=== PATIENT | male | born 1955 | race Caucasian/White ===

== ENCOUNTER 2025-01-15 05:22 | Day surgery (SDC) | payer MEDICARE, OTHER ==
[2025-01-08 11:22] LABS: BASOPHILS # (AUTO) 0.1 X10'3 (0-0.2); BASOPHILS % (AUTO) 0.8 % (0-1); EOSINOPHILS # (AUTO) 0.2 X10'3 (0-0.9); EOSINOPHILS % (AUTO) 3.2 % (0-6); LYMPHOCYTES # (AUTO) 1.5 X10'3 (1.1-4.8); LYMPHOCYTES % (AUTO) 20.1 % (21-51); MEAN CORPUSCULAR HEMOGLOBIN 31.7 PG (27.0-31.0); MEAN CORPUSCULAR HGB CONC 33.7 g/dL (33.0-36.5); MONOCYTES # (AUTO) 0.9 X10'3 (0-0.9); MONOCYTES % (AUTO) 12.2 % (2-12); NEUTROPHILS # (AUTO) 4.7 X10'3 (1.8-7.7); NEUTROPHILS % (AUTO) 63.7 % (42-75); PRE OP HEMATOCRIT 51.2 % (42.0-52.0); PRE OP HEMOGLOBIN 17.3 g/dL (14.0-17.9); PRE OP PLATELET COUNT 192 X10'3 (140-440); PRE OP WHITE BLOOD COUNT 7.3 10'3 (4.8-10.8); RED BLOOD COUNT 5.45 X10'6 (4.70-6.10)
[2025-01-08 11:39] LABS: ALBUMIN 3.7 G/DL (3.4-5.0); ALBUMIN/GLOBULIN RATIO 1.1 (1.1-1.5); ALKALINE PHOSPHATASE 76 IU/L (46-116); BLOOD UREA NITROGEN 18 MG/DL (7-18); BUN/CREATININE RATIO 16.8 (10.0-20.0); CALCIUM 9.1 MG/DL (8.5-10.1); CHLORIDE 103 MMOL/L (99-107); CREATININE 1.07 MG/DL (0.60-1.10); PRE OP ALT 29 U/L (30-65); PRE OP ANION GAP 6 (8-16); PRE OP AST 17 U/L (10-37); PRE OP GLUCOSE 90 MG/DL (70-104); PRE OP POTASSIUM 4.1 MMOL/L (3.4-5.1); PRE OP SODIUM 138 MMOL/L (135-145); TOTAL CARBON DIOXIDE 29.3 MMOL/L (24-32); TOTAL PROTEIN 7.1 G/DL (6.4-8.2); eGFR 68 ML/MIN
[~2025-01-15] VITALS: Ht 175.3 cm; Wt 90.3 kg
[2025-01-15] VITALS (9 sets, daily range): BP systolic 133–158; BP diastolic 81–105; PULSE 65–104; RESP 14–18; TEMP 97.8; O2SAT 65–98
[~2025-01-15 05:22] MED LIST: AMLO5TAB PO; FEBU40TA PO; FEXO-25 PO; LOSA100T58 PO; MULT-1085 PO; VIT D3
[2025-01-15] MEDS: ceFAZolin 2gm in dextrose, iso 50 ML IV ONE (05:51)
[2025-01-15] MEDS: ringers solution, lacted 1,000 ML IV SCH (06:07)
[2025-01-15] MEDS: famotidine 20mg tablet PO ONE (06:07)
[2025-01-15] MEDS ORDERED: LIDOcaine 1% 30ml preserv. free vial ONE (06:40)
[2025-01-15] MEDS ORDERED: BUPIVAcaine 2.5mg/ml inj 50ml vial (contains preservative) ONE (06:40)
[2025-01-15] MEDS ORDERED: meperidine/PF 25mg/ml syringe IV PRN ×3 (07:30)
[2025-01-15] MEDS ORDERED: ringers solution, lacted 1,000 ML IV SCH (07:30)
[2025-01-15] MEDS ORDERED: ondansetron/PF 4mg/2ml inj IV PRN (07:30)
[2025-01-15] MEDS ORDERED: morphine 2 MG/ML inj. syringe IV PRN (07:30)
[2025-01-15] MEDS ORDERED: proCHLORperazine 10 MG/2 ml inj IV PRN (07:30)
[2025-01-15] MEDS ORDERED: hydrALAZINE 20mg/ml inj. IV PRN (07:30)
[2025-01-15] MEDS ORDERED: morphine 4 MG/ML inj SYRINge IV PRN (07:30)
[2025-01-15] MEDS ORDERED: sevoflurane 250ml liquid IH ONE (07:32)
[2025-01-15] MEDS ORDERED: midazolam 1 mg/ML 2ml injection ONE (07:35)
[2025-01-15] MEDS ORDERED: fentaNYL /PF 50mcg/ml 5ml ampule ONE (07:35)
[2025-01-15] MEDS ORDERED: propofol inj 20 ML IV ONE (08:04)
[2025-01-15] MEDS ORDERED: 0.9 % SODIUM CHLORIDE 10 ML VIAL ONE (08:04)
[2025-01-15] MEDS ORDERED: ePHEDrine 50MG/ML INJ. ONE (08:05)
[2025-01-15] MEDS ORDERED: LIDOcaine 2% (20mg/ml) 5ml vial ONE (08:05)
[2025-01-15] MEDS ORDERED: rocuronium 10mg/ml inj IV ONE (08:05)
[2025-01-15] MEDS ORDERED: ondansetron/PF 4mg/2ml inj ONE (08:06)
[2025-01-15] MEDS ORDERED: dexamethasone sod phosphate 4mg/ml inj. ONE (08:06)
[2025-01-15] MEDS: BUPIVAcaine/PF 2.5 mg/ml (0.25%) 30ml vial IJ ONE (08:13)
[2025-01-15] MEDS ORDERED: neostigmine methylsulfate 1 MG/ML 10ml vial ONE (08:50)
[2025-01-15] MEDS ORDERED: glycopyrrolate 0.2mg/ml inj ONE (08:50)
[2025-01-15] MEDS ORDERED: morphine 4 MG/ML inj SYRINge ONE (09:08)
[2025-01-15] MEDS ORDERED: HYDROcodone/acetaminophen 5mg/325mg tablet PO PRN (09:45)
[2025-01-15] MEDS: labetalol 20mg/4ml (5mg/ml) syringe IV PRN (10:05)
[2025-01-15] MEDS: acetaminophen 1,000mg/100ml IV 100 ML IV PRN (10:14)
== END 2025-01-15 10:50 | disposition home or self-care (01) ==
LOC: PAS 05:22
PROVIDERS: ATTEND Surgery
DX: K42.9 Umbilical hernia without obstruction or gangrene (principal); K40.90 Unilateral inguinal hernia, without obstruction or gangrene, not specified as recurrent; I10 Essential (primary) hypertension; E78.5 Hyperlipidemia, unspecified; Z98.890 Other specified postprocedural states; Z79.899 Other long term (current) drug therapy
CPT/HCPCS: 36415; 49591; 49650; 80053; 82948; 85025; 93005; A4215; A4615; A4618; C1781; J0131; J0690; J1100; J2003; J2250; J2270; J2405; J2704; J2710; J3010; J3490; J7030; J7120; Z7506; Z7508; Z7512; Z7610